=== PATIENT | female | born 1985 | race Caucasian/White ===

== ENCOUNTER 2019-07-03 14:07 | Emergency (ER) | payer BC ==
[~2019-07-03] VITALS: Ht 160 cm; Wt 57.2 kg
[2019-07-03 14:09] VITALS: BP 120/76; PULSE 68; RESP 18; Ht 160 cm; Wt 57.2 kg
[2019-07-03] MEDS ORDERED: ACETAMINOPHEN 325 MG TAB PO STA (14:30)
== END 2019-07-03 16:43 | disposition home or self-care (01) ==
LOC: FTE 14:07
DX: O20.9 Hemorrhage in early pregnancy, unspecified (principal); R10.2 Pelvic and perineal pain; Z3A.01 Less than 8 weeks gestation of pregnancy
CPT/HCPCS: 36415; 76801; 76817; 81001; 84702; 85025; 86900; 86901

== ENCOUNTER 2019-07-05 10:49 | Emergency (ER) | payer SELFPAY ==
[~2019-07-05] VITALS: Ht 152.4 cm; Wt 56.8 kg
[2019-07-05 11:12] VITALS: BP 112/72; PULSE 86; RESP 18; Ht 152.4 cm; Wt 56.8 kg
== END 2019-07-05 11:45 | disposition left against medical advice (07) ==
LOC: E/R 10:49
DX: Z53.21 Procedure and treatment not carried out due to patient leaving prior to being seen by health care provider (principal)